=== PATIENT | female | born 1955 | race Caucasian/White ===

== ENCOUNTER → 2018-04-21 | Outpatient (CLI) | payer MEDICARE ==
[~2018-04-21] MED LIST: AMLO10 PO; ASPI325 PO; ASPI81CH PO; Desyrel50 MG; FURO20; GLIP5ER PO; K-Dur20 MEQ PO; LOSA50 PO; Lovastatin20 MG PO; METF500 PO; PIOG15 PO; TRAM50 PO; VICTOZA 3-0.6 MG/0.1 SC
[2018-04-21 10:34] LABS: BASOPHILS ABSOLUTE AUTO 0.08 K/mm3 (0.00-0.23); BASOPHILS PERCENT AUTO 1 % (0-2); EOSINOPHILS ABSOLUTE AUTO 0.18 K/mm3 (0.00-0.68); EOSINOPHILS PERCENT AUTO 2 % (0-6); Hematocrit 37.8 % (33.0-51.0); Hemoglobin 12.6 g/dL (11.5-16.0); IMMATURE GRAN PERCENT AUTO 1 % (0-1); LYMPHOCYTES ABSOLUTE AUTO 1.75 K/mm3 (0.84-5.20); LYMPHOCYTES PERCENT AUTO 18 % (21-46); MONOCYTES PERCENT AUTO 8 % (4-13); Mean Corpuscular HGB 27.4 pg (26.0-34.0); Mean Corpuscular HGB Conc 33.3 g/dL (31.5-36.5); Mean Corpuscular Volume 82 fL (80-100); NEUTROPHILS PERCENT AUTO 71 % (41-73); Platelet Count 306 K/mm3 (150-400); RDW Coefficient Variation 15.9 % (11.7-14.2); RDW Standard Deviation 47.2 fL (35.1-46.3); White Blood Cell Count 9.91 K/mm3 (4.00-11.30)
[2018-04-21 10:49] LABS: Alanine Aminotransfer (ALT/SGP 52 U/L (12-78); Albumin, Blood 4.1 g/dL (3.4-5.0); Alk Phos 51 U/L (40-126); Anion Gap 13 mmol/L (6-16); Aspartate Aminotrans (AST/SGOT 59 U/L (12-37); Bilirubin, Total 0.4 mg/dL (0.1-1.0); Blood Urea Nitrogen 22 mg/dL (8-24); Bun/Creatinine Ratio 19.3 (12.0-20.0); CO2, Blood 25 mmol/L (21-32); CPK Creatine Kinase 45 U/L (26-192); Calcium, Blood 9.8 mg/dL (8.5-10.1); Chloride, Blood 100 mmol/L (98-108); Creatinine, Blood 1.14 mg/dL (0.40-1.00); Globulin, Blood 4.3 g/dL (2.2-4.0); Glomerular Filtration Rate 48 (60-); Glucose, Blood 282 mg/dL (70-99); Sodium, Blood 138 mmol/L (136-145); Total Protein, Blood 8.4 g/dL (6.4-8.2); Troponin I <0.017 ng/mL (0.000-0.040)
[2018-04-21 13:06] LABS: Free Thyroxine 1.12 ng/dL (0.70-1.60); Thyroid Stimulating Hormone 3.642 uIU/mL (0.360-4.800)
== END ==
LOC: LAB EV 10:30 → LAB SHORT 10:30
PROVIDERS: General Practice
DX: R42 Dizziness and giddiness (principal); R53.83 Other fatigue
CPT/HCPCS: 80053; 82550; 84439; 84443; 84484; 85025

== ENCOUNTER 2019-06-13 12:38 | Day surgery (SDC) | payer MEDICARE ==
[~2019-06-13] VITALS: Ht 162.6 cm; Wt 114.3 kg
[~2019-06-13 12:38] MED LIST changes: -ASPI325 PO; +CALCIUM PO; +FISH OIL PO; -FURO20; +FURO20 PO; +GLUCOSAMINE &1 EACH PO; +INVOKAMET 150-1 EACH PO; +NOVOLIN N SC; +VITAMIN D PO
[2019-06-14 04:24] LABS: BASOPHILS ABSOLUTE AUTO 0.03 K/mm3 (0.00-0.23); BASOPHILS PERCENT AUTO 0 % (0-2); EOSINOPHILS PERCENT AUTO 0 % (0-6); Hematocrit 35.6 % (33.0-51.0); Hemoglobin 11.4 g/dL (11.5-16.0); IMMATURE GRAN ABSOLUTE AUTO 0.15 K/mm3 (0.00-0.10); IMMATURE GRAN PERCENT AUTO 1 % (0-1); LYMPHOCYTES ABSOLUTE AUTO 1.23 K/mm3 (0.84-5.20); LYMPHOCYTES PERCENT AUTO 8 % (21-46); MONOCYTES PERCENT AUTO 8 % (4-13); Mean Corpuscular HGB 27.6 pg (26.0-34.0); Mean Corpuscular Volume 86 fL (80-100); Mean Platelet Volume 9.8 fL (9.1-12.4); NEUTROPHILS ABSOLUTE AUTO 13.16 K/mm3 (1.96-9.15); NEUTROPHILS PERCENT AUTO 83 % (41-73); Platelet Count 241 K/mm3 (150-400); RDW Coefficient Variation 14.5 % (11.7-14.2); RDW Standard Deviation 45.8 fL (35.1-46.3); Red Blood Cell Count 4.13 M/mm3 (3.80-5.20); White Blood Cell Count 15.87 K/mm3 (4.00-11.30)
[2019-06-14 04:43] LABS: Anion Gap 8 mmol/L (6-16); Blood Urea Nitrogen 19 mg/dL (8-24); Bun/Creatinine Ratio 27.5 (12.0-20.0); CO2, Blood 23 mmol/L (21-32); Calcium, Blood 8.8 mg/dL (8.5-10.1); Chloride, Blood 107 mmol/L (98-108); Creatinine, Blood 0.69 mg/dL (0.40-1.00); Glomerular Filtration Rate >60 (60-); Glucose, Blood 167 mg/dL (70-99); Magnesium, Blood 1.9 mg/dL (1.6-2.4); Sodium, Blood 138 mmol/L (136-145)
--- NOTE | 2019-06-14 07:26 | NUR ---
SUMMARY PT UP IN HALL JACQUIE. REPORTS PAIN ADEQUATELY CONTROLLED. TOLERATING PO. VOIDING WITHOUT DIFF.
[2019-06-14] MEDS ORDERED: Percocet 5-3251 EACH PO (10:29)
[2019-06-14] MEDS ORDERED: XARELTO15 MG PO (10:30)
[2019-06-14] MEDS ORDERED: ASPI325 PO (11:14)
--- NOTE | 2019-06-14 11:38 | NUR ---
PATIENT D/C'D HOME WITH SPOUSE AT THIS TIME. PATIENT STATES UNDERSTANDING OF MEDS, WOUND CARE, ACTIVITY, OP PT, F/U APPT, ETC. TOLERATING PO, VOIDING, PAIN CONTROLLED WITH PO PAIN MED. NO C/O AT THIS TIME.
--- NOTE | 2019-06-14 12:48 | NUR ---
06/14/19 1248 Queenie Villalobos VERIFICATIONS: EDIT CHART.
== END 2019-06-14 11:35 | disposition home or self-care (01) ==
LOC: ORSCMMR 12:38 → ORD 14:15 → ORSCMMR 17:51 → SURS 17:58 → ORSCMMR 17:58 → SURS 06-14 11:35
PROVIDERS: Orthopaedic Surgery
PROC: 0SRD0JA Replacement of Left Knee Joint with Synthetic Substitute, Uncemented, Open Approach (ICD-10-PCS; principal; 2019-06-13 14:15)
DX: M17.12 Unilateral primary osteoarthritis, left knee (principal); Z01.818 Encounter for other preprocedural examination; I10 Essential (primary) hypertension; G47.33 Obstructive sleep apnea (adult) (pediatric); E11.9 Type 2 diabetes mellitus without complications; Z87.891 Personal history of nicotine dependence; E66.01 Morbid (severe) obesity due to excess calories; Z68.41 Body mass index [BMI] 40.0-44.9, adult; Z79.899 Other long term (current) drug therapy
CPT/HCPCS: 36415; 73560-LT; 80048; 82947; 83735; 85025; 86850; 86900; 86901; 88300; 94762; 97110; 97116; 97161; C1776; J0171; J0690; J0735; J1100; J1170; J1815; J1885; J2250; J2405; J2704; J2795; J3010; J3370; J7120

== ENCOUNTER → 2021-06-03 | Outpatient (CLI) | payer MEDICARE ==
[~2021-06-03] MED LIST changes: +ASPI325 PO; +Percocet 5-3251 EACH PO; +XARELTO15 MG PO
[2021-06-11 16:11] LABS: HPV 16 Negative (Negative); HPV 18 Negative (Negative); HPV OTHER HR TYPES Negative (Negative)
== END | disposition home or self-care (01) ==
LOC: LAB SHORT 16:10
PROVIDERS: Nurse Practitioner Family
DX: Z01.419 Encounter for gynecological examination (general) (routine) without abnormal findings (principal)
CPT/HCPCS: 87624; G0123

== ENCOUNTER → 2022-03-21 | Outpatient (CLI) | payer MEDICARE ==
[2022-03-21 12:06] LABS: Source, Urine Clean Catch
[2022-03-21 13:24] LABS: Appearance, Urine Clear (Clear); Bilirubin, Urine Neg (Neg); Blood, Urine Neg (Neg); Glucose Qualitative, Urine Neg (Neg); Ketones, Urine Neg (Neg); Leukocyte Esterase, Urine Neg (Neg); Nitrite, Urine Neg (Neg); Protein, Urine Neg (Neg); Specific Gravity, Urine 1.015 (1.003-1.022); Urobilinogen, Urine NORM (Normal)
[2022-03-21 14:44] LABS: Color, Urine Pale Yellow (P-Yellow)
== END ==
LOC: LAB SHORT 12:03
PROVIDERS: Obstetrics & Gynecology
DX: N95.0 Postmenopausal bleeding (principal)
CPT/HCPCS: 81003